=== PATIENT | female | born 1985 | race Caucasian/White ===

== ENCOUNTER 2018-09-02 20:11 | Day surgery (SDC) | payer BC, OTHER ==
[2018-09-02] VITALS (7 sets, daily range): BP systolic 105–113; BP diastolic 54–60; PULSE 83–93; TEMP 98.4–98.7
[~2018-09-02 20:11] MED LIST: ERRIN PO; IBUPROFEN800 MG PO; NORCO 325 MG-51 TAB PO
[2018-09-02] MEDS ORDERED: PERCOCET 325 MG1 TA2 PO (22:33)
[2018-09-03 00:10] VITALS: BP 110/57; PULSE 78
[2018-09-03 00:40] VITALS: BP 102/58; PULSE 79
[2018-09-03 01:40] VITALS: BP 106/55; PULSE 83
== END 2018-09-03 02:10 | disposition home or self-care (01) ==
LOC: LDRO 20:11
DX: O34.81 Maternal care for other abnormalities of pelvic organs, first trimester (principal); N83.6 Hematosalpinx; R93.89 Abnormal findings on diagnostic imaging of other specified body structures; O46.91 Antepartum hemorrhage, unspecified, first trimester; G43.909 Migraine, unspecified, not intractable, without status migrainosus; K58.9 Irritable bowel syndrome, unspecified; Z82.49 Family history of ischemic heart disease and other diseases of the circulatory system
CPT/HCPCS: G0378; J1100; J1885; J2405; J2704; J3010; J7120